=== PATIENT | female | born 1975 | race Caucasian/White ===

== ENCOUNTER 2016-12-14 10:21 | Emergency (ER) | payer OTHER ==
--- NOTE | 2016-12-14 10:59 | ED CLINICAL REPORT ---
Clinical Report - Physicians/Mid Levels [facility] [address] [place] [address] 12/14/2016 10:23 Patient: LAFONZO KNIGHT Time Seen: 10:47 Dec 14 2016. Arrived- By private vehicle. Historian- patient. CPT: ER phys charges level 3 (#018819). HISTORY OF PRESENT ILLNESS Chief Complaint: MOUTH SORE. This started About 1 year or 1.5 years after her cis-[place] chemo for cervical CA. and is still present. Pain described as moderate. The patient has had mouth sores. (Sore tongue, right side. Says she sees spots on soft palate.). Similar symptoms previously: None. Recent medical care: Not recently seen/assessed. REVIEW OF SYSTEMS No fever, eye discomfort, cough, difficulty breathing or chest pain. No nausea, diarrhea, abdominal pain, difficulty with urination or joint pain. No skin rash, enlarged lymph nodes or vomiting. Denies current . The patient has had a headache. All systems otherwise negative, except as recorded above. PAST HISTORY Cervical cancer with radiation and cis-[place] chem 2013. 2015 she developed tongue symptoms. Has been present ever since., Traumatic Brain Injury 2007. Cervical CA. Seizure. Radiation Therapy. Chemotherapy. ADDITIONAL SURGERIES: Oopherplexiy. Medications: Oral Benzocaine. Fluticasone Furoate Nasal. Tylenol Oral, PRN. CombiPatch Transdermal (Patch Twice Weekly 0.05-0.14 mg/day). Allergies: No Known Drug Allergy. SOCIAL HISTORY Former smoker. No alcohol use or drug use. ADDITIONAL NOTES The nursing notes have been reviewed. PHYSICAL EXAM Vital Signs: 12/14/2016 10:30 BP: 126/90. HR: 93. RR: 16. O2 saturation: 100%. Temp: 98.3 F. Pain level now: 9/10. Appearance: Alert. No acute distress. Anxious. Head: Normal external inspection. Eyes: Pupils equal, round and reactive to light. Conjunctivae and eyelids normal. ENT: Ears normal. Nose normal. Pharynx normal. Lips normal. Gums normal. No trismus present. Uvula midline. No pharyngeal erythema, mouth ulcerations, tonsillar exudate or peritonsillar mass. (Pt with mild swelling over the right side of the tongue. NO abrasion. No ulceration , mass or papule. No sloughing of tissue. No neck adenopathy to palpation.). Neck: No adenopathy. CVS: Normal heart rate and rhythm. Heart sounds normal. Pulses normal. Respiratory: No respiratory distress. Abdomen: Soft. Skin: Normal skin color. No rash. Extremities: Extremities nontender. Neuro: Oriented X 3. PROGRESS AND PROCEDURES Patient/family counseled. Disposition: Discharged. Condition: stable. CLINICAL IMPRESSION Tongue and mouth pain of unclear etiology. INSTRUCTIONS Warnings: Further evaluation is necessary. Your Current Medications: CONTINUE TAKING THE FOLLOWING MEDICATIONS: CombiPatch Transdermal : Patch Twice Weekly 0.05-0.14 mg/day. Fluticasone Furoate Nasal. Oral Benzocaine*. Tylenol Oral : PRN. Follow-up: Follow up with an ear, nose and throat physician (an racing mechanic). Call for the next available appointment. Reason for referral: Diagnosis for mouth symptoms. Understanding of the discharge instructions verbalized by patient. (Electronically signed by Bryant Canela MD 12/14/2016 11:26)
--- NOTE | 2016-12-14 10:59 | ED NURSING NOTES ---
Clinical Report - Nurses [facility] [address] [place] [address] 12/14/2016 10:23 Patient: ALFONZO KNIGHT TRIAGE Triage time 10:30 Dec 14 2016. Acuity: LEVEL 3. Chief Complaint: (Mouth Sores and dysphagia). Alert. THELMA COMA SCORE: [place] Coma Scale: 15- eyes open spontaneously (4); best verbal response- oriented x 4 (5); best motor response- obeys commands (6). --10:47 Tremayne Oshea R.N. 10:30 12/14/16. BP: 126/90. HR: 93. RR: 16. O2 saturation: 100%. Temp: 98.3 F (oral). Pain level now: 9/10. Additional comments: mouth sores. --10:47 Tremayne Oshea R.N. Weight: 83.9 kg stated. Height/Length: 65 inches Per Patient. BMI: 30.8. --10:32 Tremayne Oshea R.N. Medications CombiPatch Transdermal (Patch Twice Weekly 0.05-0.14 mg/day). --10:39 Tremayne Oshea R.N. Tylenol Oral, PRN. --10:40 Tremayne Oshea R.N. Fluticasone Furoate Nasal. --10:42 Tremayne Oshea R.N. Oral Benzocaine. --10:49 Tremayne Oshea R.N. Allergies No Known Drug Allergy. --10:39 Tremayne Oshea R.N. Medication/allergy information source: the patient. --10:47 Tremayne Oshea R.N. History Arrived by private vehicle. Historian: patient. Accompanied by family. Primary physician (Chioma Gonzalez). ( Mouth Sores, which are now visible on the roof of her mouth. Sores are painful and her tongue is deformed on the sides (R) > (L). Seen several practiioners, who have never seemed to satisfied her concerns that her sores might be CA.). Onset. (about 1 year ago). She has had a cough. ( Dysphagia). Treatment COLLAR FELLER: None. PAST MEDICAL HX: Immunizations: up-to-date. The patient is post-menopausal. Denies current . SOCIAL HX: Former smoker, end date 05/2016. No alcohol use or drug use. No infectious disease exposure. ABUSE ASSESSMENT: No report of abuse. FALL RISK ASSESSMENT: Fall risk assessment completed. No fall risk identified. NUTRITIONAL RISK ASSESSMENT: The nutritional risk assessment revealed no deficiencies. FUNCTIONAL ASSESSMENT: Functional assessment: no impairments noted. LEARNING NEEDS ASSESSMENT: The learning needs assessment revealed no barriers. SKIN INTEGRITY ASSESSMENT: Skin integrity risk assessment completed. No skin integrity risk identified. --10:47 Tremayne Oshea R.N. The patient has had weakness. ( Tired). --10:49 Tremayne Oshea R.N. PROBLEMS: Traumatic Brain Injury 2007. Cervical CA. Seizure. --10:44 Tremayne Oshea R.N. Radiation Therapy. Chemotherapy. --10:47 Tremayne Oshea R.N. ADDITIONAL SURGERIES: Oopherplexiy. --10:44 Tremayne Oshea R.N. Interventions ID band on patient. To treatment room. --10:47 Tremayne Oshea R.N. PHYSICAL ASSESSMENT Ambulatory to room. GENERAL / NEURO / PSYCH: Alert. Oriented X 4. RESPIRATORY: Respirations not labored. Breath sounds within normal limits. CVS: Capillary refill less than 2 seconds. Pulses within normal limits. GI / : Abdomen soft and nontender. SKIN: Skin intact. Skin is warm and dry. Normal skin turgor. --10:48 Tremayne Oshea R.N. NURSING PROGRESS NOTES Reassurance given. Patient identifiers checked. Call light placed in reach. Side rails up x 1. Bed placed in lowest position. Brakes of bed on. Patient ready for evaluation- chart flagged and ED physician notified. --10:48 Tremayne Oshea R.N. DISPOSITION / DISCHARGE Departure time: 1100. --12:37 Tremayne Oshea R.N. 11:00. Condition at departure: unchanged. No learning barriers present. Discharge instructions provided and reviewed with the patient. Reviewed medication(s) (Continue your usual medications). Reviewed referral to an ear, nose, and throat specialist (insurance sales specialist) and family practice for followup. Patient verbalized understanding. Written instructions provided in Scottish. The patient was discharged by the physician. She was discharged home and unaccompanied at time of discharge. She left the Emergency Department ambulatory and via private vehicle. Patient driving. --12:40 Tremayne Oshea R.N. Locked/Released at 12/14/2016 12:41 by Tremayne Oshea R.N.
--- NOTE | 2016-12-14 10:59 | ED CLINICAL REPORT ---
Clinical Report - Physicians/Mid Levels [facility] [address] [place] [address] 12/14/2016 10:23 Patient: ALFONZO KNIGHT Time Seen: 10:47 Dec 14 2016. Arrived- By private vehicle. Historian- patient. CPT: ER phys charges level 3 (#240389). HISTORY OF PRESENT ILLNESS Chief Complaint: MOUTH SORE. This started About 1 year or 1.5 years after her cis-[place] chemo for cervical CA. and is still present. Pain described as moderate. The patient has had mouth sores. (Sore tongue, right side. Says she sees spots on soft palate.). Similar symptoms previously: None. Recent medical care: Not recently seen/assessed. REVIEW OF SYSTEMS No fever, eye discomfort, cough, difficulty breathing or chest pain. No nausea, diarrhea, abdominal pain, difficulty with urination or joint pain. No skin rash, enlarged lymph nodes or vomiting. Denies current . The patient has had a headache. All systems otherwise negative, except as recorded above. PAST HISTORY Cervical cancer with radiation and cis-[place] chem 2013. 2015 she developed tongue symptoms. Has been present ever since., Traumatic Brain Injury 2007. Cervical CA. Seizure. Radiation Therapy. Chemotherapy. ADDITIONAL SURGERIES: Oopherplexiy. Medications: Oral Benzocaine. Fluticasone Furoate Nasal. Tylenol Oral, PRN. CombiPatch Transdermal (Patch Twice Weekly 0.05-0.14 mg/day). Allergies: No Known Drug Allergy. SOCIAL HISTORY Former smoker. No alcohol use or drug use. ADDITIONAL NOTES The nursing notes have been reviewed. PHYSICAL EXAM Vital Signs: 12/14/2016 10:30 BP: 126/90. HR: 93. RR: 16. O2 saturation: 100%. Temp: 98.3 F. Pain level now: 9/10. Appearance: Alert. No acute distress. Anxious. Head: Normal external inspection. Eyes: Pupils equal, round and reactive to light. Conjunctivae and eyelids normal. ENT: Ears normal. Nose normal. Pharynx normal. Lips normal. Gums normal. No trismus present. Uvula midline. No pharyngeal erythema, mouth ulcerations, tonsillar exudate or peritonsillar mass. (Pt with mild swelling over the right side of the tongue. NO abrasion. No ulceration , mass or papule. No sloughing of tissue. No neck adenopathy to palpation.). Neck: No adenopathy. CVS: Normal heart rate and rhythm. Heart sounds normal. Pulses normal. Respiratory: No respiratory distress. Abdomen: Soft. Skin: Normal skin color. No rash. Extremities: Extremities nontender. Neuro: Oriented X 3. PROGRESS AND PROCEDURES Patient/family counseled. Disposition: Discharged. Condition: stable. CLINICAL IMPRESSION Tongue and mouth pain of unclear etiology. INSTRUCTIONS Warnings: Further evaluation is necessary. Your Current Medications: CONTINUE TAKING THE FOLLOWING MEDICATIONS: CombiPatch Transdermal : Patch Twice Weekly 0.05-0.14 mg/day. Fluticasone Furoate Nasal. Oral Benzocaine*. Tylenol Oral : PRN. Follow-up: Follow up with an ear, nose and throat physician (an classifier). Call for the next available appointment. Reason for referral: Diagnosis for mouth symptoms. Understanding of the discharge instructions verbalized by patient. (Electronically signed by Bryant Canela MD 12/14/2016 11:26)
--- NOTE | 2016-12-14 10:59 | ED NURSING NOTES ---
Clinical Report - Nurses [facility] [address] [place] [address] 12/14/2016 10:23 Patient: ALFONZO KNIGHT TRIAGE Triage time 10:30 Dec 14 2016. Acuity: LEVEL 3. Chief Complaint: (Mouth Sores and dysphagia). Alert. THELMA COMA SCORE: [place] Coma Scale: 15- eyes open spontaneously (4); best verbal response- oriented x 4 (5); best motor response- obeys commands (6). --10:47 Tremayne Oshea R.N. 10:30 12/14/16. BP: 126/90. HR: 93. RR: 16. O2 saturation: 100%. Temp: 98.3 F (oral). Pain level now: 9/10. Additional comments: mouth sores. --10:47 Tremayne Oshea R.N. Weight: 83.9 kg stated. Height/Length: 65 inches Per Patient. BMI: 30.8. --10:32 Tremayne Oshea R.N. Medications CombiPatch Transdermal (Patch Twice Weekly 0.05-0.14 mg/day). --10:39 Tremayne Oshea R.N. Tylenol Oral, PRN. --10:40 Tremayne Oshea R.N. Fluticasone Furoate Nasal. --10:42 Tremayne Oshea R.N. Oral Benzocaine. --10:49 Tremayne Oshea R.N. Allergies No Known Drug Allergy. --10:39 Tremayne Oshea R.N. Medication/allergy information source: the patient. --10:47 Tremayne Oshea R.N. History Arrived by private vehicle. Historian: patient. Accompanied by family. Primary physician (Chioma Gonzalez). ( Mouth Sores, which are now visible on the roof of her mouth. Sores are painful and her tongue is deformed on the sides (R) > (L). Seen several practiioners, who have never seemed to satisfied her concerns that her sores might be CA.). Onset. (about 1 year ago). She has had a cough. ( Dysphagia). Treatment FILLER SHAKER: None. PAST MEDICAL HX: Immunizations: up-to-date. The patient is post-menopausal. Denies current . SOCIAL HX: Former smoker, end date 05/2016. No alcohol use or drug use. No infectious disease exposure. ABUSE ASSESSMENT: No report of abuse. FALL RISK ASSESSMENT: Fall risk assessment completed. No fall risk identified. NUTRITIONAL RISK ASSESSMENT: The nutritional risk assessment revealed no deficiencies. FUNCTIONAL ASSESSMENT: Functional assessment: no impairments noted. LEARNING NEEDS ASSESSMENT: The learning needs assessment revealed no barriers. SKIN INTEGRITY ASSESSMENT: Skin integrity risk assessment completed. No skin integrity risk identified. --10:47 Tremayne Oshea R.N. The patient has had weakness. ( Tired). --10:49 Tremayne Oshae R.N. PROBLEMS: Traumatic Brain Injury 2007. Cervical CA. Seizure. --10:44 Tremayne Oshea R.N. Radiation Therapy. Chemotherapy. --10:47 Tremayne Oshea R.N. ADDITIONAL SURGERIES: Oopherplexiy. --10:44 Tremayne Oshea R.N. Interventions ID band on patient. To treatment room. --10:47 Tremayne Oshea R.N. PHYSICAL ASSESSMENT Ambulatory to room. GENERAL / NEURO / PSYCH: Alert. Oriented X 4. RESPIRATORY: Respirations not labored. Breath sounds within normal limits. CVS: Capillary refill less than 2 seconds. Pulses within normal limits. GI / : Abdomen soft and nontender. SKIN: Skin intact. Skin is warm and dry. Normal skin turgor. --10:48 Tremayne Oshea R.N. NURSING PROGRESS NOTES Reassurance given. Patient identifiers checked. Call light placed in reach. Side rails up x 1. Bed placed in lowest position. Brakes of bed on. Patient ready for evaluation- chart flagged and ED physician notified. --10:48 Tremayne Oshea R.N. DISPOSITION / DISCHARGE Departure time: 1100. --12:37 Tremayne Oshea R.N. 11:00. Condition at departure: unchanged. No learning barriers present. Discharge instructions provided and reviewed with the patient. Reviewed medication(s) (Continue your usual medications). Reviewed referral to an ear, nose, and throat specialist (district home economics agent) and family practice for followup. Patient verbalized understanding. Written instructions provided in Kitt[place]. The patient was discharged by the physician. She was discharged home and unaccompanied at time of discharge. She left the Emergency Department ambulatory and via private vehicle. Patient driving. --12:40 Tremayne Oshea R.N. Locked/Released at 12/14/2016 12:41 by Tremayne Oshea R.N.
--- NOTE | 2016-12-14 12:41 | ED MAR SUMMARY ---
..... Medication Administration Record [facility] [address] [place], [place] [id number] Patient: ALFONZO KNIGHT Visit ID: [id number] 41y, F Weight: 83.9 kg Height/Length: 65 in BMI: 30.8 ALLERGIES: No Known Drug Allergy
--- NOTE | 2016-12-14 12:41 | ED DISCHARGE INSTRUCTIONS ---
Patient: ALFONZO KNIGHT General Instructions [facility] VisitID: [id number] [address] [place] [address] 41y, F Registration Date/Time: 12/14/2016 Tongue and mouth pain of unclear etiology. INSTRUCTIONS Warnings: Further evaluation is necessary. Your Current Medications: CONTINUE TAKING THE FOLLOWING MEDICATIONS: CombiPatch Transdermal : Patch Twice Weekly 0.05-0.14 mg/day. Fluticasone Furoate Nasal. Oral Benzocaine*. Tylenol Oral : PRN. Follow-up: Follow up with an ear, nose and throat physician (an tool grinder operator external). Call for the next available appointment. Reason for referral: Diagnosis for mouth symptoms. Understanding of the discharge instructions verbalized by patient. (Electronically signed by Bryant Canela MD 12/14/2016 11:26)
--- NOTE | 2016-12-14 12:41 | ED MED RECONCILIATION SUMMARY ---
Patient: ALFONZO KNIGHT Medication Reconciliation Report [facility] VisitID: [id number] [address] [place] [address] 41y, F Registration Date/Time: 12/14/2016 Weight: 83.9 kg Height/Length: 65 in. BMI: 30.8 ALLERGIES: No Known Drug Allergy The patient's Home Medications are listed below: CONTINUE TAKING THE FOLLOWING MEDICATIONS: CombiPatch Transdermal (0.05-0.14 mg/day) Fluticasone Furoate Nasal Oral Benzocaine Tylenol Oral, PRN The source(s) of the original Home Medication information: patient The following Medications were given to the patient in the Emergency Department: None. The following Medications were prescribed to the patient: None.
--- NOTE | 2016-12-14 12:41 | ED MED RECONCILIATION SUMMARY ---
Patient: ALFONZO KNIGHT Medication Reconciliation Report [facility] VisitID: [id number] [address] [place] [address] 41y, F Registration Date/Time: 12/14/2016 Weight: 83.9 kg Height/Length: 65 in. BMI: 30.8 ALLERGIES: No Known Drug Allergy The patient's Home Medications are listed below: CONTINUE TAKING THE FOLLOWING MEDICATIONS: CombiPatch Transdermal (0.05-0.14 mg/day) Fluticasone Furoate Nasal Oral Benzocaine Tylenol Oral, PRN The source(s) of the original Home Medication information: patient The following Medications were given to the patient in the Emergency Department: None. The following Medications were prescribed to the patient: None.
--- NOTE | 2016-12-14 12:41 | ED MAR SUMMARY ---
..... Medication Administration Record [facility] [address] [place] [id number] Patient: ALFONZO KNIGHT Visit ID: [id number] 41y, F Weight: 83.9 kg Height/Length: 65 in BMI: 30.8 ALLERGIES: No Known Drug Allergy
--- NOTE | 2016-12-14 12:41 | ED DISCHARGE INSTRUCTIONS ---
Patient: ALFONZO KNIGHT General Instructions [facility] VisitID: [id number] [address] [place] [address] 41y, F Registration Date/Time: 12/14/2016 Tongue and mouth pain of unclear etiology. INSTRUCTIONS Warnings: Further evaluation is necessary. Your Current Medications: CONTINUE TAKING THE FOLLOWING MEDICATIONS: CombiPatch Transdermal : Patch Twice Weekly 0.05-0.14 mg/day. Fluticasone Furoate Nasal. Oral Benzocaine*. Tylenol Oral : PRN. Follow-up: Follow up with an ear, nose and throat physician (an plate keeper). Call for the next available appointment. Reason for referral: Diagnosis for mouth symptoms. Understanding of the discharge instructions verbalized by patient. (Electronically signed by Bryant Canela MD 12/14/2016 11:26)
== END 2016-12-14 11:00 | disposition home or self-care (01) ==
LOC: ED SRH 10:21
DX: K14.6 Glossodynia (principal); K13.79 Other lesions of oral mucosa; Z87.891 Personal history of nicotine dependence; Z85.41 Personal history of malignant neoplasm of cervix uteri; Z92.21 Personal history of antineoplastic chemotherapy